=== PATIENT | male | born 1980 | race Caucasian/White ===

== ENCOUNTER 2018-02-15 06:14 | Day surgery (SDC) | payer BC ==
[~2018-02-15] VITALS: Ht 180.3 cm; Wt 110.4 kg
[2018-02-15] VITALS (11 sets, daily range): BP systolic 120–145; BP diastolic 61–71
[~2018-02-15 06:14] MED LIST: ALBU18HF2 INH; HYDR-3927 PO; albuterol 2.5 MG/3 ML nebule NEB ONE; ceFAZolin 2gm in dextrose, iso 100 ML IV ONE; famotidine 20mg tablet PO ONE; ringers solution, lacted 1,000 ML IV SCH
[2018-02-15] MEDS ORDERED: ringers solution, lacted 1,000 ML IV SCH (07:49)
[2018-02-15] MEDS ORDERED: ondansetron/PF 4mg/2ml inj IV PRN (07:50)
[2018-02-15] MEDS ORDERED: morphine 4 MG/ML inj SYRINge IV PRN (07:50)
[2018-02-15] MEDS ORDERED: labetalol 20mg/4ml (5mg/ml) syringe IV PRN (07:50)
[2018-02-15] MEDS ORDERED: fentaNYL/PF 50MCG/1 ML 2ML syringe IV PRN ×2 (07:50)
[2018-02-15] MEDS ORDERED: hydrALAZINE 20mg/ml inj. IV PRN (07:50)
[2018-02-15 08:18] LABS: BASOPHILS # (AUTO) 0.1 X10'3 (0-0.2); BASOPHILS % (AUTO) 1.1 % (0-1); EOSINOPHILS # (AUTO) 0.1 X10'3 (0-0.9); EOSINOPHILS % (AUTO) 1.6 % (0-6); LYMPHOCYTES # (AUTO) 1.6 X10'3 (1.1-4.8); LYMPHOCYTES % (AUTO) 32.2 % (21-51); MEAN CORPUSCULAR HEMOGLOBIN 34.3 PG (27.0-31.0); MEAN CORPUSCULAR HGB CONC 34.7 % (33.0-36.5); MEAN CORPUSCULAR VOLUME 98.8 FL (78-98); MEAN PLATELET VOLUME 8.9 FL (7.4-10.4); MONOCYTES # (AUTO) 0.4 X10'3 (0-0.9); MONOCYTES % (AUTO) 8.4 % (2-12); NEUTROPHILS # (AUTO) 2.8 X10'3 (1.8-7.7); NEUTROPHILS % (AUTO) 56.7 % (42-75); PRE OP HEMATOCRIT 42.4 % (42.0-52.0); PRE OP HEMOGLOBIN 14.7 g/dL (14.0-17.9); RED BLOOD COUNT 4.29 X10'6 (4.70-6.10); RED CELL DISTRIBUTION WIDTH 14.6 % (11.5-14.5)
[2018-02-15] MEDS ORDERED: ROPIVAcaine 0.5% (5mg/ml) 30ml vial ONE ×2 (08:19→09:29)
[2018-02-15 08:26] LABS: ALBUMIN 3.3 G/DL (3.4-5.0); ALBUMIN/GLOBULIN RATIO 0.7 (1.1-1.5); ALKALINE PHOSPHATASE 202 IU/L (46-116); BLOOD UREA NITROGEN 7 MG/DL (7-18); BUN/CREATININE RATIO 9.6 (5.4-32.0); CALCIUM 8.8 MG/DL (8.5-10.1); CHLORIDE 102 MMOL/L (99-107); CREATININE 0.73 MG/DL (0.60-1.10); PRE OP ALT 62 U/L (30-65); PRE OP ANION GAP 11 (8-16); PRE OP BILIRUB, TOTAL 0.8 MG/DL (0.0-1.0); PRE OP GLUCOSE 183 MG/DL (70-104); PRE OP PLATELET COUNT 81 X10'3 (140-440); PRE OP POTASSIUM 3.6 MMOL/L (3.4-5.1); PRE OP SODIUM 138 MMOL/L (135-145); TOTAL CARBON DIOXIDE 25.2 MMOL/L (24-32); TOTAL PROTEIN 8.1 G/DL (6.4-8.2); eGFR > 90 ML/MIN
[2018-02-15 08:37] LABS: PRE OP AST 108 U/L (10-37)
[2018-02-15] MEDS ORDERED: sevoflurane 250ml liquid IH ONE (09:00)
[2018-02-15] MEDS ORDERED: propofol inj 20 ML IV ONE (09:06)
[2018-02-15] MEDS ORDERED: LIDOcaine 2% (20mg/ml) 5ml vial ONE (09:06)
[2018-02-15] MEDS ORDERED: midazolam 2 mg/2 ml injection ONE (09:06)
[2018-02-15] MEDS ORDERED: fentaNYL/PF 50MCG/1 ML 2ML syringe ONE (09:06)
[2018-02-15] MEDS: morphine 4 MG/ML inj SYRINge IV PRN ×2 (10:26→11:00)
== END 2018-02-15 11:47 | disposition home or self-care (01) ==
LOC: PAS 06:14
PROVIDERS: ATTEND Surgery
DX: I86.8 Varicose veins of other specified sites (principal); F41.8 Other specified anxiety disorders; J45.998 Other asthma; F32.9 Major depressive disorder, single episode, unspecified; E66.9 Obesity, unspecified; F17.210 Nicotine dependence, cigarettes, uncomplicated; Z72.89 Other problems related to lifestyle; Z68.33 Body mass index [BMI] 33.0-33.9, adult; Z79.899 Other long term (current) drug therapy; Z98.890 Other specified postprocedural states
CPT/HCPCS: 36415; 37799; 80053; 85025; A6446; A6449; J0690; J2001; J2250; J2270; J2704; J2795; J3010; J7120; A7000

== ENCOUNTER 2019-03-21 14:51 | Emergency (ER) | payer BC, OTHER ==
[~2019-03-21] VITALS: Ht 180.3 cm; Wt 110.5 kg
[~2019-03-21 14:51] MED LIST changes: -albuterol 2.5 MG/3 ML nebule NEB ONE; -ceFAZolin 2gm in dextrose, iso 100 ML IV ONE; -famotidine 20mg tablet PO ONE; -ringers solution, lacted 1,000 ML IV SCH
[2019-03-21 15:01] VITALS: BP 129/76
== END 2019-03-21 16:17 ==
LOC: ER 14:51
DX: S20.212A Contusion of left front wall of thorax, initial encounter (principal); S40.022A Contusion of left upper arm, initial encounter; F17.200 Nicotine dependence, unspecified, uncomplicated; F10.99 Alcohol use, unspecified with unspecified alcohol-induced disorder; Y90.9 Presence of alcohol in blood, level not specified; V89.2XXA Person injured in unspecified motor-vehicle accident, traffic, initial encounter; Y93.I9 Activity, other involving external motion; Y92.488 Other paved roadways as the place of occurrence of the external cause; Y99.8 Other external cause status
CPT/HCPCS: 71046; 99283

== ENCOUNTER 2019-04-29 20:02 | Inpatient (IN) | payer OTHER ==
[~2019-04-29] VITALS: Ht 180.3 cm; Wt 109.0 kg
[2019-04-29] MEDS ORDERED: normal saline 1000ML IV soln IVB ONE ×2 (20:40)
[2019-04-29] MEDS ORDERED: LORazepam 2 mg/ml vial IV ONE (20:40)
[2019-04-29 20:49] LABS: URINE AMPHETAMINE SCREEN NEGATIVE (Neg); URINE BARBITUATE SCREEN NEGATIVE (Neg); URINE BENZODIAZEPINES SCREEN NEGATIVE (Neg); URINE CANNABINOID SCREEN POSITIVE (Neg); URINE COCAINE SCREEN NEGATIVE (Neg); URINE METHADONE SCREEN NEGATIVE (Neg); URINE OPIATE SCREEN NEGATIVE (Neg); URINE PHENCYCLIDINE SCREEN NEGATIVE (Neg)
[2019-04-29 20:50] LABS: ALANINE AMINOTRANSFERASE 65 U/L (12-78); ALBUMIN 3.3 G/DL (3.4-5.0); ALKALINE PHOSPHATASE 151 IU/L (46-116); ANION GAP 12 (8-16); ASPARTATE AMINO TRANSFERASE 183 U/L (10-37); BILIRUBIN,TOTAL 8.2 MG/DL (0.1-1.0); BLOOD UREA NITROGEN 18 MG/DL (7-18); BUN/CREATININE RATIO 21.7 (5.4-32.0); CALCIUM 9.1 MG/DL (8.5-10.1); CHLORIDE 101 MMOL/L (99-107); CREATININE 0.83 MG/DL (0.60-1.10); GLUCOSE 111 MG/DL (70-104); SODIUM 139 MMOL/L (135-145); TOTAL CARBON DIOXIDE 25.6 MMOL/L (24-32); eGFR > 90 ML/MIN
[2019-04-29 20:51] LABS: ETHANOL < 0.010 GM/DL (0.0-0.010)
[2019-04-29 20:54] LABS: POTASSIUM 3.4 MMOL/L (3.5-5.1)
[2019-04-29 20:55] LABS: ACETAMINOPHEN < 2.0 UG/ML (10-30); ALBUMIN/GLOBULIN RATIO 0.6 (1.1-1.5); BASOPHILS % (AUTO) 0.4 % (0-1); EOSINOPHILS % (AUTO) 0.3 % (0-6); HEMATOCRIT 39.6 % (42.0-52.0); HEMOGLOBIN 13.5 g/dl (14.0-17.9); LYMPHOCYTES # (AUTO) 0.9 X10'3 (1.1-4.8); LYMPHOCYTES % (AUTO) 12.2 % (21-51); MEAN CORPUSCULAR HEMOGLOBIN 35.1 PG (27.0-31.0); MEAN CORPUSCULAR HGB CONC 34.1 g/dL (33.0-36.5); MEAN CORPUSCULAR VOLUME 102.9 FL (78-98); MEAN PLATELET VOLUME 8.5 FL (7.4-10.4); MONOCYTES # (AUTO) 0.9 X10'3 (0-0.9); MONOCYTES % (AUTO) 11.4 % (2-12); NEUTROPHILS # (AUTO) 5.7 X10'3 (1.8-7.7); NEUTROPHILS % (AUTO) 75.7 % (42-75); RED BLOOD COUNT 3.85 X10'6 (4.70-6.10); RED CELL DISTRIBUTION WIDTH 16.6 % (11.5-14.5); TOTAL PROTEIN 9.2 G/DL (6.4-8.2); WHITE BLOOD COUNT 7.5 X10'3 (4.5-11.0)
[2019-04-29 20:56] LABS: CLARITY,URINE CLEAR (Clear); COLOR,URINE AMBER (Yellow); GLUCOSE, URINE 100 mg/dl (Neg); KETONES,URINE 15 mg/dl (Neg); LEUKOCYTE ESTERASE ,URINE TRACE (Neg); OCCULT BLOOD,URINE LARGE (Neg); PH,URINE 6.5 (4.8-8.0); PROTEIN,URINE 100 mg/dl (Neg); UA COLLECTION TYPE CLN CATCH MIDSTREAM; UROBILINOGEN,URINE >=8.0 E.U/dL (0.2-1.0)
[2019-04-29 21:03] LABS: PARTIAL THROMBOPLASTIN TIME 31 SECONDS (22-32)
[2019-04-29 21:03] LABS: NITRITES, URINE NEGATIVE (Neg)
[2019-04-29 21:07] LABS: BACTERIA,URINE NONE SEEN /HPF (Neg); RBC,URINE 20-50 /HPF (0-2); WBC,URINE 0-4 /HPF (0-4)
[2019-04-29 21:08] LABS: MUCUS STRANDS MANY /LPF (Neg); SQUAMOUS EPITHELIAL CELL,UR FEW /LPF (FEW)
[2019-04-29 21:11] LABS: MAGNESIUM 1.3 MG/DL (1.5-2.4)
[2019-04-29 21:12] LABS: CREATINE KINASE 2367 U/L (39-308)
[2019-04-29 21:16] LABS: PLATELET COUNT 50 X10'3 (140-440)
[2019-04-29] MEDS ORDERED: potassium Cl 10 mEq/100mL bag IV ONE (22:00)
[2019-04-29] MEDS ORDERED: magnesium 2GM in 50ml NS 50 ML IV ONE (22:00)
[2019-04-29] MEDS ORDERED: thiamine 100mg/ml 2ml inj. IV ONE (23:40)
[2019-04-29] MEDS ORDERED: mag hydrox/Alum hydrox/simeth 30ml oral suspension PO PRN (23:50)
[2019-04-29] MEDS ORDERED: magnesium hydroxide 30ml (MOM) UD suspension PO PRN (23:50)
[2019-04-29] MEDS ORDERED: ondansetron/PF 4mg/2ml inj IV PRN (23:50)
[2019-04-29] MEDS: normal saline 1000ml 1,000 ML IV SCH (23:56)
[2019-04-30] MEDS ORDERED: metoprolol tartrate 25mg tablet PO ONE
--- NOTE | 2019-04-30 04:53 | NUR ---
Received report from Elisabet DAVENPORT pt arrived via wheelchair, ambulated to bed, vital signs taken, pt had soiled himself will get cleaned up then assess.
[2019-04-30 04:55] VITALS: BP 133/74
[2019-04-30] MEDS: LORazepam 2 mg/ml vial IV PRN ×5 (05:06→18:47)
--- NOTE | 2019-04-30 05:24 | NUR ---
pt reports currently not having hallucinations
--- NOTE | 2019-04-30 06:10 | NUR ---
Patient in room [facility]. I have received report from ETHEL Waite and had the opportunity to ask questions and assume patient care.
--- NOTE | 2019-04-30 06:13 | NUR ---
Gave report to Cindy DAVENPORT pt is laying in bed, in no apparent distress, sitter at bedside, call light and items of freq use within reach.
[2019-04-30 07:00] VITALS: BP 127/59
[2019-04-30] MEDS ORDERED: heparin, porcine 5000 units/ml vial SQ SCH (08:00)
[2019-04-30] MEDS: thiamine 100mg tablet PO SCH (08:36)
[2019-04-30 10:14] LABS: BASOPHILS % (AUTO) 0.7 % (0-1); EOSINOPHILS # (AUTO) 0.1 X10'3 (0-0.9); EOSINOPHILS % (AUTO) 1.1 % (0-6); HEMATOCRIT 33.7 % (42.0-52.0); HEMOGLOBIN 11.5 g/dl (14.0-17.9); LYMPHOCYTES % (AUTO) 18.3 % (21-51); MEAN CORPUSCULAR HEMOGLOBIN 35.6 PG (27.0-31.0); MEAN CORPUSCULAR HGB CONC 34.1 g/dL (33.0-36.5); MEAN CORPUSCULAR VOLUME 104.5 FL (78-98); MEAN PLATELET VOLUME 9.1 FL (7.4-10.4); MONOCYTES # (AUTO) 0.6 X10'3 (0-0.9); MONOCYTES % (AUTO) 10.9 % (2-12); NEUTROPHILS # (AUTO) 3.9 X10'3 (1.8-7.7); PLATELET COUNT 51 X10'3 (140-440); RED BLOOD COUNT 3.23 X10'6 (4.70-6.10); RED CELL DISTRIBUTION WIDTH 16.8 % (11.5-14.5); WHITE BLOOD COUNT 5.6 X10'3 (4.5-11.0)
[2019-04-30 10:30] LABS: ALANINE AMINOTRANSFERASE 55 U/L (12-78); ALBUMIN 2.7 G/DL (3.4-5.0); ALKALINE PHOSPHATASE 130 IU/L (46-116); ANION GAP 10 (8-16); ASPARTATE AMINO TRANSFERASE 148 U/L (10-37); BILIRUBIN,TOTAL 5.8 MG/DL (0.1-1.0); BLOOD UREA NITROGEN 21 MG/DL (7-18); BUN/CREATININE RATIO 23.3 (5.4-32.0); CALCIUM 7.9 MG/DL (8.5-10.1); CHLORIDE 103 MMOL/L (99-107); GLUCOSE 149 MG/DL (70-104); POTASSIUM 3.3 MMOL/L (3.5-5.1); SODIUM 139 MMOL/L (135-145); TOTAL CARBON DIOXIDE 25.7 MMOL/L (24-32); eGFR > 90 ML/MIN
[2019-04-30 10:32] LABS: ALBUMIN/GLOBULIN RATIO 0.5 (1.1-1.5); ANISOCYTOSIS 1+; PLATELET ESTIMATE DECREASED; POLYCHROMASIA FEW; ROULEAUX 1+; TARGET CELLS FEW; TOTAL PROTEIN 7.7 G/DL (6.4-8.2)
[2019-04-30 10:37] LABS: LIPASE 291 U/L (73-393)
[2019-04-30 11:00] VITALS: BP 102/58
[2019-04-30] MEDS ORDERED: potassium CL 10mEq/100ml bag 100 ML IV PRN (11:10)
[2019-04-30] MEDS ORDERED: magnesium Cl slow-release 64mg tablet PO PRN (11:10)
[2019-04-30] MEDS ORDERED: magnesium 4gm in 100ml NS 100 ML IV PRN (11:10)
[2019-04-30] MEDS ORDERED: potassium Cl 20 mEq SR tablet PO PRN (11:10)
[2019-04-30 11:30] LABS: MAGNESIUM 1.8 MG/DL (1.5-2.4)
[2019-04-30] MEDS: multivitamins, therapeutics tablet PO SCH (12:03)
[2019-04-30] MEDS: potassium Cl 20 mEq SR tablet PO PRN ×4 (12:03→22:50)
[2019-04-30] MEDS: folic acid 1mg tablet PO SCH (12:03)
--- NOTE | 2019-04-30 17:00 | NUR ---
Patient becoming increasingly more agitated despite Ativan being given one hour ago. Will give another dose. Patient stating he wants to go home. Education given about purpose of staying here. Patient stated an understanding and agreed to wait until the morning.
[2019-04-30] MEDS: normal saline 1000ml 1,000 ML IV SCH (17:33)
--- NOTE | 2019-04-30 18:10 | NUR ---
Problems reprioritized. Patient report given, questions answered & plan of care reviewed with ETHEL Prakash.
[2019-04-30 18:30] VITALS: BP 110/60
[2019-04-30] MEDS: haloperidol lactate 5mg/ml inj IM PRN (18:47)
[2019-04-30] MEDS: chlordiazePOXIDE 25mg capsule PO SCH (22:50)
[2019-04-30 23:00] VITALS: BP 114/69
[2019-05-01] MEDS ORDERED: chlordiazePOXIDE 25mg capsule PO SCH
[2019-05-01] MEDS: LORazepam 2 mg/ml vial IV PRN ×5 (01:41→21:15)
[2019-05-01 02:00] VITALS: BP 122/70
[2019-05-01 05:23] LABS: ALANINE AMINOTRANSFERASE 52 U/L (12-78); ALBUMIN 2.5 G/DL (3.4-5.0); ALBUMIN/GLOBULIN RATIO 0.5 (1.1-1.5); ALKALINE PHOSPHATASE 138 IU/L (46-116); ANION GAP 10 (8-16); ASPARTATE AMINO TRANSFERASE 137 U/L (10-37); BILIRUBIN,TOTAL 3.4 MG/DL (0.1-1.0); BLOOD UREA NITROGEN 18 MG/DL (7-18); BUN/CREATININE RATIO 27.3 (5.4-32.0); CALCIUM 8.1 MG/DL (8.5-10.1); CHLORIDE 107 MMOL/L (99-107); CREATININE 0.66 MG/DL (0.60-1.10); GLUCOSE 113 MG/DL (70-104); LIPASE 495 U/L (73-393); MAGNESIUM 1.7 MG/DL (1.5-2.4); POTASSIUM 3.4 MMOL/L (3.5-5.1); SODIUM 142 MMOL/L (135-145); TOTAL CARBON DIOXIDE 25.5 MMOL/L (24-32); TOTAL PROTEIN 7.2 G/DL (6.4-8.2); eGFR > 90 ML/MIN
[2019-05-01 05:34] LABS: EOSINOPHILS # (AUTO) 0.1 X10'3 (0-0.9); HEMATOCRIT 32.3 % (42.0-52.0); HEMOGLOBIN 10.9 g/dl (14.0-17.9); LYMPHOCYTES # (AUTO) 0.8 X10'3 (1.1-4.8); LYMPHOCYTES % (AUTO) 22.8 % (21-51); MEAN CORPUSCULAR HEMOGLOBIN 35.5 PG (27.0-31.0); MEAN CORPUSCULAR HGB CONC 33.8 g/dL (33.0-36.5); MEAN PLATELET VOLUME 8.7 FL (7.4-10.4); MONOCYTES # (AUTO) 0.4 X10'3 (0-0.9); MONOCYTES % (AUTO) 12.4 % (2-12); NEUTROPHILS # (AUTO) 2.2 X10'3 (1.8-7.7); NEUTROPHILS % (AUTO) 61.8 % (42-75); RED BLOOD COUNT 3.08 X10'6 (4.70-6.10); RED CELL DISTRIBUTION WIDTH 16.7 % (11.5-14.5); WHITE BLOOD COUNT 3.6 X10'3 (4.5-11.0)
--- NOTE | 2019-05-01 06:16 | NUR ---
Patient in room [facility]. I have received report from ETHEL Prakash and had the opportunity to ask questions and assume patient care.
--- NOTE | 2019-05-01 06:16 | NUR ---
Problems reprioritized. Patient report given, questions answered & plan of care reviewed with Cindy. Addendum: 05/01/19 at 0620 by Joey Dan RN Amended: Links added.
[2019-05-01 06:31] LABS: PLATELET COUNT 37 X10'3 (140-440)
[2019-05-01] MEDS: folic acid 1mg tablet PO SCH (07:10)
[2019-05-01] MEDS: multivitamins, therapeutics tablet PO SCH (07:11)
[2019-05-01] MEDS: thiamine 100mg tablet PO SCH (07:11)
[2019-05-01 07:15] VITALS: BP 110/61
[2019-05-01] MEDS: chlordiazePOXIDE 25mg capsule PO SCH ×3 (07:39→21:15)
[2019-05-01 11:00] VITALS: BP 100/52
[2019-05-01] MEDS: nicotine 21mg patch - 24 hr TD SCH (13:00)
[2019-05-01] MEDS: normal saline 1000ml 1,000 ML IV SCH (15:38)
[2019-05-01] MEDS: potassium Cl 20 mEq SR tablet PO PRN (17:17)
--- NOTE | 2019-05-01 18:11 | NUR ---
Problems reprioritized. Patient report given, questions answered & plan of care reviewed with ETHEL Prakash.
[2019-05-01] MEDS: haloperidol lactate 5mg/ml inj IM PRN (20:41)
--- NOTE | 2019-05-01 21:35 | NUR ---
PT IS WANTING TO GO HOME AMA. I HAVE EXPLAINED THE REASONS WHY HE SHOULDN'T DO THAT AND SECURITY CAME UP AND TALKED TO HIM. HE NOW AGREEABLE TO MORE MEDS, I GAVE HIM AN ADDITIONAL 2 MG OF ATIVAN & HIS SCHEDULED LIBRIUM Addendum: 05/01/19 at 2139 by Joey Dan RN Amended: Links added.
[2019-05-02] VITALS: BP 96/41
[2019-05-02] MEDS: LORazepam 2 mg/ml vial IV PRN ×2 (01:42→03:17)
[2019-05-02 04:52] LABS: BASOPHILS % (AUTO) 1.6 % (0-1); EOSINOPHILS # (AUTO) 0.1 X10'3 (0-0.9); EOSINOPHILS % (AUTO) 2.3 % (0-6); HEMATOCRIT 31.5 % (42.0-52.0); HEMOGLOBIN 10.7 g/dl (14.0-17.9); LYMPHOCYTES # (AUTO) 0.8 X10'3 (1.1-4.8); LYMPHOCYTES % (AUTO) 26.6 % (21-51); MEAN CORPUSCULAR HEMOGLOBIN 35.8 PG (27.0-31.0); MEAN CORPUSCULAR HGB CONC 33.8 g/dL (33.0-36.5); MEAN CORPUSCULAR VOLUME 105.8 FL (78-98); MEAN PLATELET VOLUME 9.2 FL (7.4-10.4); MONOCYTES # (AUTO) 0.4 X10'3 (0-0.9); MONOCYTES % (AUTO) 12.5 % (2-12); NEUTROPHILS # (AUTO) 1.8 X10'3 (1.8-7.7); RED BLOOD COUNT 2.98 X10'6 (4.70-6.10); RED CELL DISTRIBUTION WIDTH 16.8 % (11.5-14.5); WHITE BLOOD COUNT 3.1 X10'3 (4.5-11.0)
[2019-05-02 04:56] LABS: PLATELET COUNT 38 X10'3 (140-440)
[2019-05-02 05:08] LABS: ALANINE AMINOTRANSFERASE 57 U/L (12-78); ALBUMIN 2.5 G/DL (3.4-5.0); ALBUMIN/GLOBULIN RATIO 0.5 (1.1-1.5); ALKALINE PHOSPHATASE 183 IU/L (46-116); ANION GAP 10 (8-16); ASPARTATE AMINO TRANSFERASE 133 U/L (10-37); BILIRUBIN,TOTAL 2.4 MG/DL (0.1-1.0); BLOOD UREA NITROGEN 12 MG/DL (7-18); BUN/CREATININE RATIO 17.1 (5.4-32.0); CALCIUM 8.3 MG/DL (8.5-10.1); CHLORIDE 106 MMOL/L (99-107); GLUCOSE 126 MG/DL (70-104); LIPASE 272 U/L (73-393); MAGNESIUM 1.4 MG/DL (1.5-2.4); POTASSIUM 3.5 MMOL/L (3.5-5.1); SODIUM 140 MMOL/L (135-145); TOTAL CARBON DIOXIDE 24.3 MMOL/L (24-32); TOTAL PROTEIN 7.1 G/DL (6.4-8.2); eGFR > 90 ML/MIN
--- NOTE | 2019-05-02 06:30 | NUR ---
Patient in room [facility]. I have received report from Dwain DAVENPORT and had the opportunity to ask questions and assume patient care.
[2019-05-02] MEDS: chlordiazePOXIDE 25mg capsule PO SCH ×2 (06:50→14:06)
--- NOTE | 2019-05-02 06:51 | NUR ---
Problems reprioritized. Patient report given, questions answered & plan of care reviewed with TAYLOR. Addendum: 05/02/19 at 0651 by Joey Dan RN Amended: Links added.
[2019-05-02 07:27] VITALS: BP 133/74
[2019-05-02] MEDS: multivitamins, therapeutics tablet PO SCH (08:32)
[2019-05-02] MEDS: folic acid 1mg tablet PO SCH (08:32)
[2019-05-02] MEDS: LORazepam 1 MG tablet PO PRN ×2 (08:32→10:35)
[2019-05-02] MEDS: thiamine 100mg tablet PO SCH (08:32)
[2019-05-02] MEDS: nicotine 21mg patch - 24 hr TD SCH (08:32)
[2019-05-02] MEDS ORDERED: ondansetron 4mg rapidly disintigrating tab PO PRN (09:40)
[2019-05-02 12:16] VITALS: BP 130/77
[2019-05-02] MEDS ORDERED: NICO-687 TD (16:29)
--- NOTE | 2019-05-02 19:15 | NUR ---
PCT reported pt had hallucinations right after speaking with Dr. Arce. Pts here saying she doesnt feel comfortable taking pt home if he is still hallucinating. Informed Dr. Arce of what was reported. Dr. Arce in to see patient and pt adamant about leaving. Dr. Arce spoke with and came to agreement that will take pt home and pt will be discharged. Patient discharged with all belongings.
[2019-05-03] MEDS ORDERED: LORazepam 2 mg/ml vial IV PRN (23:55)
[2019-05-03] MEDS ORDERED: LORazepam 1 MG tablet PO PRN (23:55)
== END 2019-05-02 18:00 | disposition home or self-care (01) | DRG 441 ==
LOC: ER 20:03 → SUR 3N 04-30 04:27 → CMPBEDREQ 05-01 19:57
PROVIDERS: ADMIT Internal Medicine; ATTEND Family Medicine
DX: K72.90 Hepatic failure, unspecified without coma (principal); I21.A1 Myocardial infarction type 2; M62.82 Rhabdomyolysis; D69.6 Thrombocytopenia, unspecified; E83.42 Hypomagnesemia; E87.6 Hypokalemia; F17.210 Nicotine dependence, cigarettes, uncomplicated; R74.0 Nonspecific elevation of levels of transaminase and lactic acid dehydrogenase [LDH]; F29 Unspecified psychosis not due to a substance or known physiological condition; F10.10 Alcohol abuse, uncomplicated; Z79.899 Other long term (current) drug therapy; Z71.6 Tobacco abuse counseling
CPT/HCPCS: 36415; 70450; 80053; 80305; 80320; 80329; 81001; 82140; 82550; 82948; 83690; 83735; 84484; 85025; 85610; 85730; 87081; 87088; 93005; 96361; 96365; 96375; 99285; G0378; J1630; J2060; J3411; J3475; J3480; J7030

== ENCOUNTER 2019-06-12 07:14 | Inpatient (IN) | payer OTHER ==
[~2019-06-12 07:14] MED LIST changes: -HYDR-3927 PO; +NICO-687 TD
[2019-06-12] MEDS ORDERED: morphine 4 MG/ML inj SYRINge ONE (08:08)
[2019-06-12] MEDS ORDERED: LORazepam 2 mg/ml vial ONE (08:09)
[2019-06-12] MEDS ORDERED: morphine 10mg/ml inj. IV PRN (08:15)
[2019-06-12] MEDS: LORazepam 2 mg/ml vial IV PRN ×2 (09:35→10:02)
[2019-06-12] MEDS: morphine 10mg/ml inj. IV PRN ×2 (09:45→09:49)
--- NOTE | 2019-06-12 09:45 | NUR ---
2MG ATIVAN GIVEN , 4MG MORPHINE GIVEN POST EXTUBATION
[2019-06-12 09:46] VITALS: BP 137/53
--- NOTE | 2019-06-12 09:49 | NUR ---
GAVE SECOND DOSE OF 4MG MORPHINE PER BERKLEY HOLLEY WHOM IS AT THE BEDSIDE
== END 2019-06-12 13:00 | disposition expired | DRG 661 ==
LOC: EDSTATUS 08:45 → EEVIPCON 09:14 → PACU 09:14
PROC: 0TT20ZZ Resection of Bilateral Kidneys, Open Approach (ICD-10-PCS; principal; 2019-06-12 10:02)
DX: Z52.4 Kidney donor (principal); K70.30 Alcoholic cirrhosis of liver without ascites; F10.20 Alcohol dependence, uncomplicated; K73.9 Chronic hepatitis, unspecified
CPT/HCPCS: Z7506; Z7508; 94002; 94760; A4618; A6258; A7000; J1644; J2060; J2270